=== PATIENT | male | born 1965 | race Caucasian/White ===

== ENCOUNTER 2020-03-15 15:01 | Emergency (ER) | payer MEDICAID ==
[~2020-03-15] VITALS: Ht 180.3 cm; Wt 70.3 kg
--- NOTE | 2020-03-15 15:13 | NUR ---
WEAKNESS, FELLING "EXHAUSTED" NO APPETITE FOR DAYS. "I NEED TO BE ADMITTED TO REST." TO ER BED 11, HOOKED TO BP CUFF AND POX, CHANGED TO HOSP GOWN, WARM BLANKET PROVIDED, PATIENT AAO x 4, BREATHING EVEN AND UNLABORED, NOT IN RESPIRATORY DISTRESS. AWAITING MD MAHER.
--- NOTE | 2020-03-15 15:16 | NUR ---
DR BERRY AT BEDSIDE
--- NOTE | 2020-03-15 16:38 | NUR ---
Patient discharged to home in stable condition. Written and verbal after care instructions given. Patient verbalizes understanding of instruction.
[2020-03-15 16:43] VITALS: BP 124/87
== END 2020-03-15 16:43 | disposition home or self-care (01) ==
LOC: ER 15:04
DX: R53.1 Weakness (principal)